=== PATIENT | female | born 1945 | race Caucasian/White ===

== ENCOUNTER 2023-11-28 06:12 | Day surgery (SDC) | payer OTHER ==
[2023-11-23 14:44] VITALS: BMI 29.6
[2023-11-28] MEDS ORDERED: BUPIVACAINE HCL/PF 0.5% (5MG/ML) 10 ML VIAL ONE (07:15)
[2023-11-28] MEDS ORDERED: LIDOCAINE 1%/EPI 1:100000 (20 ML MULTI DOSE VIAL) ONE (07:15)
[2023-11-28] MEDS ORDERED: ceFAZolin SODIUM 1 GM VIAL ONE ×2 (07:15→07:26)
[2023-11-28] MEDS ORDERED: TETRACAINE 0.5% OPHTH SOLN 2 ML BOTTLE ONE (07:15)
[2023-11-28] MEDS ORDERED: POVIDONE-IODINE 5% OPHTHALMIC PREP 30 ML SOLUTION ONE (07:15)
[2023-11-28] MEDS ORDERED: ERYTHROMYCIN 0.5% OPHTHALMIC OINTMENT 3.5 GM TUBE ONE (07:15)
[2023-11-28] MEDS ORDERED: DEXAMETHASONE SOD PHOSPHATE 4 MG/1 ML VIAL ONE (07:26)
[2023-11-28] MEDS ORDERED: ONDANSETRON 4 MG/2 ML VIAL ONE ×2 (07:26→08:54)
[2023-11-28] MEDS ORDERED: PROPOFOL 40 ML ONE (07:28)
[2023-11-28] MEDS ORDERED: MIDAZOLAM HCL 2 MG/2 ML SINGLE DOSE VIAL ONE (07:28)
[2023-11-28] MEDS ORDERED: ONDANSETRON 4 MG/2 ML VIAL IVPUSH PRN (08:47)
[2023-11-28] MEDS ORDERED: FENTANYL CITRATE/PF 50 MCG/ML VIAL ONE (08:53)
[2023-11-28] MEDS ORDERED: LACTATED RINGERS SOLUTION 1,000 ML IV SCH (09:00)
[2023-11-28 09:31] VITALS: RESP 18; TEMP 97.1
[2023-11-28 10:11] VITALS: BP 120/71; PULSE 81
== END 2023-11-28 10:13 | disposition home or self-care (01) ==
LOC: FASU 06:12
PROVIDERS: ATTEND Ophthalmology
PROC: 08SN0ZZ Reposition Right Upper Eyelid, Open Approach (ICD-10-PCS; principal; 2023-11-28 08:03)
DX: H02.401 Unspecified ptosis of right eyelid (principal)
CPT/HCPCS: 94760